=== PATIENT | male | born 1940 | race Caucasian/White ===

== ENCOUNTER 2017-11-22 15:35 | Inpatient (IN) | payer MEDICARE, OTHER ==
[~2017-11-22] VITALS: Ht 180.3 cm; Wt 116.9 kg
[~2017-11-22 15:35] MED LIST: AMLO5 PO; ATOR40TA; ATOR80 PO; CELE200; FINA5 PO; GABA800 PO; GABAPENTIN; GLUCHON; HYDACE5 PO; HYDMOR2 PO; KETO10 PO; LAVAP17G PO; MULVITA; OXYCODONE; PROM25 PO; PROM50S PR; RXHYDMOR2 PO; TAMS.4ER PO; TRAM50 PO; TYLENOL ARTHRITIS; VALS80
[2017-11-22 16:36] LABS: BASOPHILS ABSOLUTE AUTO 0.04 K/mm3 (0.00-0.23); BASOPHILS PERCENT AUTO 1 % (0-2); EOSINOPHILS ABSOLUTE AUTO 0.07 K/mm3 (0.00-0.68); EOSINOPHILS PERCENT AUTO 1 % (0-6); Hematocrit 45.2 % (37.0-53.0); Hemoglobin 15.1 g/dL (13.5-17.5); IMMATURE GRAN ABSOLUTE AUTO 0.01 K/mm3 (0.00-0.10); IMMATURE GRAN PERCENT AUTO 0 % (0-1); LYMPHOCYTES ABSOLUTE AUTO 1.53 K/mm3 (0.84-5.20); LYMPHOCYTES PERCENT AUTO 21 % (21-46); MONOCYTES ABSOLUTE AUTO 0.51 K/mm3 (0.16-1.47); MONOCYTES PERCENT AUTO 7 % (4-13); Mean Corpuscular HGB 29.8 pg (26.0-34.0); Mean Corpuscular HGB Conc 33.4 g/dL (31.5-36.5); Mean Corpuscular Volume 89 fL (80-100); Mean Platelet Volume 10.9 fL (9.1-12.4); NEUTROPHILS PERCENT AUTO 70 % (41-73); Platelet Count 166 K/mm3 (150-400); RDW Coefficient Variation 13.1 % (11.7-14.2); RDW Standard Deviation 42.9 fL (35.1-46.3); Red Blood Cell Count 5.06 M/mm3 (4.30-5.90); White Blood Cell Count 7.16 K/mm3 (4.00-11.30)
[2017-11-22 16:48] LABS: International Normalized Ratio 1.11; Prothrombin Time Results 11.6 Sec (9.7-11.5)
[2017-11-22 16:52] LABS: Alanine Aminotransfer (ALT/SGP 37 U/L (12-78); Albumin, Blood 3.8 g/dL (3.4-5.0); Albumin/Globulin Ratio 1.1 (0.8-1.8); Alk Phos 90 U/L (50-136); Anion Gap 8 mmol/L (6-16); Aspartate Aminotrans (AST/SGOT 24 U/L (12-37); Bilirubin, Total 0.5 mg/dL (0.1-1.0); Blood Urea Nitrogen 17 mg/dL (8-24); Bun/Creatinine Ratio 13.7 (12.0-20.0); CO2, Blood 25 mmol/L (21-32); Calcium, Blood 9.3 mg/dL (8.5-10.1); Chloride, Blood 112 mmol/L (98-108); Creatinine, Blood 1.24 mg/dL (0.60-1.20); Globulin, Blood 3.5 g/dL (2.2-4.0); Glomerular Filtration Rate >60 (60-); Glucose, Blood 120 mg/dL (70-99); Potassium, Blood 3.8 mmol/L (3.5-5.5); Sodium, Blood 145 mmol/L (136-145); Total Protein, Blood 7.3 g/dL (6.4-8.2)
[2017-11-23 05:55] LABS: BASOPHILS ABSOLUTE AUTO 0.04 K/mm3 (0.00-0.23); BASOPHILS PERCENT AUTO 1 % (0-2); EOSINOPHILS ABSOLUTE AUTO 0.09 K/mm3 (0.00-0.68); EOSINOPHILS PERCENT AUTO 2 % (0-6); Hemoglobin 14.4 g/dL (13.5-17.5); IMMATURE GRAN ABSOLUTE AUTO 0.01 K/mm3 (0.00-0.10); IMMATURE GRAN PERCENT AUTO 0 % (0-1); LYMPHOCYTES ABSOLUTE AUTO 1.46 K/mm3 (0.84-5.20); LYMPHOCYTES PERCENT AUTO 32 % (21-46); MONOCYTES ABSOLUTE AUTO 0.35 K/mm3 (0.16-1.47); MONOCYTES PERCENT AUTO 8 % (4-13); Mean Corpuscular HGB 29.9 pg (26.0-34.0); Mean Corpuscular HGB Conc 32.7 g/dL (31.5-36.5); Mean Platelet Volume 10.6 fL (9.1-12.4); NEUTROPHILS ABSOLUTE AUTO 2.58 K/mm3 (1.96-9.15); NEUTROPHILS PERCENT AUTO 57 % (41-73); Platelet Count 108 K/mm3 (150-400); RDW Coefficient Variation 13.1 % (11.7-14.2); RDW Standard Deviation 43.9 fL (35.1-46.3); Red Blood Cell Count 4.81 M/mm3 (4.30-5.90); White Blood Cell Count 4.53 K/mm3 (4.00-11.30)
[2017-11-23 05:59] LABS: Mean Corpuscular Volume 92 fL (80-100)
[2017-11-23 06:23] LABS: Alanine Aminotransfer (ALT/SGP 31 U/L (12-78); Albumin, Blood 3.4 g/dL (3.4-5.0); Alk Phos 72 U/L (50-136); Anion Gap 9 mmol/L (6-16); Aspartate Aminotrans (AST/SGOT 21 U/L (12-37); Bilirubin, Total 0.6 mg/dL (0.1-1.0); Blood Urea Nitrogen 13 mg/dL (8-24); Bun/Creatinine Ratio 12.4 (12.0-20.0); CHOL/HDL RATIO 5.3; CO2, Blood 22 mmol/L (21-32); Calcium, Blood 8.6 mg/dL (8.5-10.1); Chloride, Blood 112 mmol/L (98-108); Cholesterol 165 mg/dL (50-200); Creatinine, Blood 1.05 mg/dL (0.60-1.20); Globulin, Blood 3.4 g/dL (2.2-4.0); Glomerular Filtration Rate >60 (60-); Glucose, Blood 137 mg/dL (70-99); HDL Cholesterol 31 mg/dL (>39); LDL/HDL RATIO 3.2; Low Density Lipoprotein Chol 99 mg/dL (0-110); Potassium, Blood 3.5 mmol/L (3.5-5.5); Sodium, Blood 143 mmol/L (136-145); Total Protein, Blood 6.8 g/dL (6.4-8.2); Triglycerides 176 mg/dL (30-160); Very Low Density Lipoprot Chol 35 mg/dL (6-32)
[2017-11-23] MEDS ORDERED: ASPI325 PO (14:40)
[2017-11-23] MEDS ORDERED: ATOR80 PO (14:40)
== END 2017-11-23 16:52 | disposition home or self-care (01) | DRG 65 ==
LOC: ER 15:35 → MEDS 16:46
PROVIDERS: Emergency Medicine; Family Medicine
DX: I63.9 Cerebral infarction, unspecified (principal); I50.30 Unspecified diastolic (congestive) heart failure; E86.0 Dehydration; I10 Essential (primary) hypertension; E78.5 Hyperlipidemia, unspecified; D69.6 Thrombocytopenia, unspecified; E66.01 Morbid (severe) obesity due to excess calories; I11.0 Hypertensive heart disease with heart failure; Z79.01 Long term (current) use of anticoagulants; Z79.82 Long term (current) use of aspirin; G43.109 Migraine with aura, not intractable, without status migrainosus; F41.8 Other specified anxiety disorders; N40.0 Benign prostatic hyperplasia without lower urinary tract symptoms
CPT/HCPCS: 36415; 70450; 71045; 80053; 80061; 85025; 85610; 85730; 93005; 93010; 93306; 93880; 99285; J1650

== ENCOUNTER 2018-08-10 12:28 | Day surgery (SDC) | payer MEDICARE, OTHER ==
[~2018-08-10] VITALS: Ht 180.3 cm; Wt 124.8 kg
[~2018-08-10 12:28] MED LIST changes: +ASPI325 PO; +BACL10; +BISA5EC; +DICL75ER PO; +ESZO1
== END 2018-08-10 14:17 | disposition home or self-care (01) ==
LOC: ORSCSDS 12:28
PROVIDERS: Anesthesiology
PROC: 3E0R33Z Introduction of Anti-inflammatory into Spinal Canal, Percutaneous Approach (ICD-10-PCS; principal; 2018-08-10 13:45)
DX: M96.1 Postlaminectomy syndrome, not elsewhere classified (principal); M54.17 Radiculopathy, lumbosacral region; E78.00 Pure hypercholesterolemia, unspecified; I10 Essential (primary) hypertension; G47.33 Obstructive sleep apnea (adult) (pediatric); K21.9 Gastro-esophageal reflux disease without esophagitis; Z87.891 Personal history of nicotine dependence; Z68.38 Body mass index [BMI] 38.0-38.9, adult; Z79.899 Other long term (current) drug therapy
CPT/HCPCS: J1040; J1100

== ENCOUNTER 2018-09-05 10:31 | Day surgery (SDC) | payer MEDICARE, OTHER ==
[~2018-09-05] VITALS: Ht 180.3 cm; Wt 123.8 kg
== END 2018-09-05 12:25 | disposition home or self-care (01) ==
LOC: ORSCSDS 10:31
PROVIDERS: Anesthesiology
PROC: 3E0R33Z Introduction of Anti-inflammatory into Spinal Canal, Percutaneous Approach (ICD-10-PCS; principal; 2018-09-05 12:00)
DX: M54.16 Radiculopathy, lumbar region (principal); I10 Essential (primary) hypertension; K21.0 Gastro-esophageal reflux disease with esophagitis; B19.10 Unspecified viral hepatitis B without hepatic coma; G47.30 Sleep apnea, unspecified; Z87.891 Personal history of nicotine dependence; E78.00 Pure hypercholesterolemia, unspecified; Z86.73 Personal history of transient ischemic attack (TIA), and cerebral infarction without residual deficits; E66.01 Morbid (severe) obesity due to excess calories; Z68.38 Body mass index [BMI] 38.0-38.9, adult; Z79.82 Long term (current) use of aspirin; Z79.899 Other long term (current) drug therapy
CPT/HCPCS: J1040; J7120

== ENCOUNTER 2018-11-21 12:40 | Day surgery (SDC) | payer MEDICARE, OTHER ==
[~2018-11-21] VITALS: Ht 180.3 cm; Wt 127.3 kg
== END 2018-11-21 14:07 | disposition home or self-care (01) ==
LOC: ORSCSDS 12:40
PROVIDERS: Anesthesiology
PROC: 3E0R33Z Introduction of Anti-inflammatory into Spinal Canal, Percutaneous Approach (ICD-10-PCS; principal; 2018-11-21 14:15)
DX: M54.16 Radiculopathy, lumbar region (principal); K21.9 Gastro-esophageal reflux disease without esophagitis; E78.00 Pure hypercholesterolemia, unspecified; G47.33 Obstructive sleep apnea (adult) (pediatric); I10 Essential (primary) hypertension; Z87.891 Personal history of nicotine dependence; E66.01 Morbid (severe) obesity due to excess calories; Z68.39 Body mass index [BMI] 39.0-39.9, adult; Z79.82 Long term (current) use of aspirin; Z79.899 Other long term (current) drug therapy
CPT/HCPCS: J1040

== ENCOUNTER 2018-12-15 15:01 | Emergency (ER) | payer MEDICARE, OTHER ==
[~2018-12-15] VITALS: Ht 180.3 cm; Wt 124.3 kg
[~2018-12-15 15:01] MED LIST changes: -BACL10; +BACL10 PO; -BISA5EC; +BISA5EC PO
[2018-12-15 15:38] LABS: BASOPHILS ABSOLUTE AUTO 0.03 K/mm3 (0.00-0.23); BASOPHILS PERCENT AUTO 1 % (0-2); EOSINOPHILS ABSOLUTE AUTO 0.09 K/mm3 (0.00-0.68); EOSINOPHILS PERCENT AUTO 2 % (0-6); Hematocrit 40.2 % (37.0-53.0); IMMATURE GRAN ABSOLUTE AUTO 0.01 K/mm3 (0.00-0.10); IMMATURE GRAN PERCENT AUTO 0 % (0-1); LYMPHOCYTES ABSOLUTE AUTO 1.15 K/mm3 (0.84-5.20); LYMPHOCYTES PERCENT AUTO 27 % (21-46); MONOCYTES ABSOLUTE AUTO 0.37 K/mm3 (0.16-1.47); MONOCYTES PERCENT AUTO 9 % (4-13); Mean Corpuscular HGB 29.9 pg (26.0-34.0); Mean Corpuscular HGB Conc 32.3 g/dL (31.5-36.5); Mean Corpuscular Volume 92 fL (80-100); NEUTROPHILS ABSOLUTE AUTO 2.66 K/mm3 (1.96-9.15); NEUTROPHILS PERCENT AUTO 62 % (41-73); Platelet Count 128 K/mm3 (150-400); RDW Coefficient Variation 12.9 % (11.7-14.2); RDW Standard Deviation 44.5 fL (35.1-46.3); Red Blood Cell Count 4.35 M/mm3 (4.30-5.90); White Blood Cell Count 4.31 K/mm3 (4.00-11.30)
[2018-12-15 16:08] LABS: Albumin, Blood 3.6 g/dL (3.4-5.0); Bilirubin, Total 0.6 mg/dL (0.1-1.0); Bun/Creatinine Ratio 17.2 (12.0-20.0); Calcium, Blood 8.6 mg/dL (8.5-10.1); Creatinine, Blood 1.28 mg/dL (0.60-1.20); Globulin, Blood 3.7 g/dL (2.2-4.0); Total Protein, Blood 7.3 g/dL (6.4-8.2)
[2018-12-15] MEDS ORDERED: CLON.1 PO (16:38)
== END 2018-12-15 17:38 | disposition home or self-care (01) ==
LOC: ER 15:01
PROVIDERS: Physician Assistant
DX: R41.82 Altered mental status, unspecified (principal); J42 Unspecified chronic bronchitis; Z86.73 Personal history of transient ischemic attack (TIA), and cerebral infarction without residual deficits; Z88.5 Allergy status to narcotic agent; Z79.899 Other long term (current) drug therapy; Z79.82 Long term (current) use of aspirin; Z87.442 Personal history of urinary calculi; Z87.891 Personal history of nicotine dependence
CPT/HCPCS: 70450; 71046; 80053; 82947; 85025; 93005; 93010; 99285-25

== ENCOUNTER → 2018-12-20 | Outpatient (CLI) | payer MEDICARE, OTHER ==
[~2018-12-20] MED LIST changes: +CLON.1 PO
== END | disposition home or self-care (01) ==
LOC: LAB SHORT 14:21 → LAB 14:21
DX: R91.8 Other nonspecific abnormal finding of lung field (principal); R05 Cough
CPT/HCPCS: 87070; 87205

== ENCOUNTER 2018-12-25 15:20 | Inpatient (IN) | payer MEDICARE, OTHER ==
[~2018-12-25] VITALS: Ht 180.3 cm; Wt 116.4 kg
[~2018-12-25 15:20] MED LIST changes: -ASPI325 PO; +Aspirin EC81 MG PO
[2018-12-25 16:20] LABS: BASOPHILS ABSOLUTE AUTO 0.04 K/mm3 (0.00-0.23); BASOPHILS PERCENT AUTO 1 % (0-2); EOSINOPHILS ABSOLUTE AUTO 0.11 K/mm3 (0.00-0.68); EOSINOPHILS PERCENT AUTO 2 % (0-6); Hematocrit 40.7 % (37.0-53.0); IMMATURE GRAN ABSOLUTE AUTO 0.01 K/mm3 (0.00-0.10); IMMATURE GRAN PERCENT AUTO 0 % (0-1); LYMPHOCYTES ABSOLUTE AUTO 1.52 K/mm3 (0.84-5.20); LYMPHOCYTES PERCENT AUTO 24 % (21-46); MONOCYTES ABSOLUTE AUTO 0.49 K/mm3 (0.16-1.47); MONOCYTES PERCENT AUTO 8 % (4-13); Mean Corpuscular HGB 29.3 pg (26.0-34.0); Mean Corpuscular HGB Conc 31.9 g/dL (31.5-36.5); Mean Corpuscular Volume 92 fL (80-100); Mean Platelet Volume 11.1 fL (9.1-12.4); NEUTROPHILS ABSOLUTE AUTO 4.09 K/mm3 (1.96-9.15); NEUTROPHILS PERCENT AUTO 65 % (41-73); Platelet Count 151 K/mm3 (150-400); RDW Coefficient Variation 12.5 % (11.7-14.2); RDW Standard Deviation 42.7 fL (35.1-46.3); Red Blood Cell Count 4.43 M/mm3 (4.30-5.90); White Blood Cell Count 6.26 K/mm3 (4.00-11.30)
[2018-12-25 16:30] LABS: International Normalized Ratio 1.1; Prothrombin Time Results 11.6 Sec (9.7-11.5)
[2018-12-25 16:42] LABS: Albumin, Blood 3.9 g/dL (3.4-5.0); Albumin/Globulin Ratio 1.1 (0.8-1.8); Bilirubin, Total 0.7 mg/dL (0.1-1.0); Bun/Creatinine Ratio 16.5 (12.0-20.0); Calcium, Blood 9.2 mg/dL (8.5-10.1); Creatinine, Blood 1.58 mg/dL (0.60-1.20); Globulin, Blood 3.6 g/dL (2.2-4.0); Potassium, Blood 4.1 mmol/L (3.5-5.5); Total Protein, Blood 7.5 g/dL (6.4-8.2)
[2018-12-25] MEDS ORDERED: Percocet 5-3251 EACH PO (18:37)
[2018-12-25] MEDS ORDERED: DIPH50 PO (19:43)
[2018-12-25] MEDS ORDERED: DICL75ER PO (19:44)
[2018-12-25] MEDS ORDERED: CELE200 PO (19:45)
[2018-12-25 22:02] LABS: CPK Creatine Kinase 98 U/L (39-308)
[2018-12-26 00:49] LABS: Source, Urine Clean Catch
[2018-12-26 00:52] LABS: Bilirubin, Urine Neg (Neg); Blood, Urine Neg (Neg); Glucose Qualitative, Urine Neg (Neg); Ketones, Urine Neg (Neg); Leukocyte Esterase, Urine Neg (Neg); Nitrite, Urine Neg (Neg); Protein, Urine Neg (Neg); Urobilinogen, Urine NORM (Normal)
[2018-12-26 00:58] LABS: Appearance, Urine Clear (Clear); Color, Urine Yellow (P-Yellow)
[2018-12-26 04:42] LABS: BASOPHILS ABSOLUTE AUTO 0.04 K/mm3 (0.00-0.23); BASOPHILS PERCENT AUTO 1 % (0-2); EOSINOPHILS ABSOLUTE AUTO 0.13 K/mm3 (0.00-0.68); EOSINOPHILS PERCENT AUTO 2 % (0-6); Hematocrit 39.6 % (37.0-53.0); IMMATURE GRAN ABSOLUTE AUTO 0.03 K/mm3 (0.00-0.10); IMMATURE GRAN PERCENT AUTO 0 % (0-1); LYMPHOCYTES ABSOLUTE AUTO 1.46 K/mm3 (0.84-5.20); LYMPHOCYTES PERCENT AUTO 20 % (21-46); MONOCYTES ABSOLUTE AUTO 0.52 K/mm3 (0.16-1.47); MONOCYTES PERCENT AUTO 7 % (4-13); Mean Corpuscular HGB Conc 32.8 g/dL (31.5-36.5); Mean Corpuscular Volume 91 fL (80-100); Mean Platelet Volume 10.9 fL (9.1-12.4); NEUTROPHILS ABSOLUTE AUTO 5.04 K/mm3 (1.96-9.15); NEUTROPHILS PERCENT AUTO 70 % (41-73); Platelet Count 165 K/mm3 (150-400); RDW Coefficient Variation 12.5 % (11.7-14.2); Red Blood Cell Count 4.34 M/mm3 (4.30-5.90); White Blood Cell Count 7.22 K/mm3 (4.00-11.30)
--- NOTE | 2018-12-26 04:48 | NUR ---
SHIFT SUMMARY: PATIENT ARRIVED TO THE FLOOR AT 2150 VIA GURNEY. ASSISTED TO BED 1-2 PERSON ASSIST. HAD TO USE URINAL RIGHT AWAY. PATIENT VERY SHY AND DID NOT WANT ANYONE IN ROOM, INFORMED THAT WE STILL HAS TO BE DUE TO HIS SYMPTOMS TO PREVENT A FALL. ONCE IN BED, HE HAS RIGHT SIDE WEAKNESS, FACIAL DROOP RIGHT SIDE, LEANING TO THE RIGHT. 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 HE IS HOPING IT IS NOT THAT. LUNG SOUNDS CLEAR THROUGHOUT. 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 CREWMAN MAIN BATTLE TANK WERE ALSO WEAK ON THE RIGHT AND DORSAL FLEXTION AND EXTENTION ALSO WEEK. DENIED ANY OTHER ISSUES, SWALLOWING NOTED WITH IN NORMALL. HE DID BEGIN TO HAVE INCREASE IN HEADACHE WHICH TYLENOL WAS GIVEN, FACIAL DROOP AND WEAKNESS UNCHANGED THROUGHOUT THE NIGHT. WILL REPORT TO DAY SHIFT.
[2018-12-26 04:56] LABS: International Normalized Ratio 1.08; Prothrombin Time Results 11.4 Sec (9.7-11.5)
[2018-12-26 05:07] LABS: Bun/Creatinine Ratio 19.2 (12.0-20.0); Calcium, Blood 9.2 mg/dL (8.5-10.1); Creatinine, Blood 1.3 mg/dL (0.60-1.20); Potassium, Blood 4.3 mmol/L (3.5-5.5)
--- NOTE | 2018-12-26 17:18 | NUR ---
[facility] initial visit: Met with Mr. Green and his at bedside. They report a nhan rissa that brings them comfort and guidence. Both were appreciative of prayer and spiritual encouragement. Family marking clerk is making visits. Mr. Green spoke clearly to me and states he feels stronger than he did last night. He is grateful for this. Both pt and spouse feel loved and supported by adult children and scientologist. Other than prayer, no needs presented. I will remain available.
--- NOTE | 2018-12-26 18:12 | NUR ---
SHIFT SUMMARY PT WORKED WITH PHYSICAL AND OCCUPATIONAL THERAPY THIS SHIFT. PT UP TO CHAIR FOR ALL MEALS. PT WEAK WHEN STANDING. RIGHT SIDE WEAKNESS GREATER THAN LEFT. PT ALERT AND ORIENTED X3 BUT DOES HAVE DIFFICULTY GETTING OUT WHAT HE WANTS TO SAY AT TIMES. NO COMPLAINTS OF PAIN THIS SHIFT. PT HAS A GOOD APPETITE. NO CHANGES THIS SHIFT. CALL LIGHT IN REACH. WILL CONTINUE TO MONITOR AND REPORT TO ONCOMING RN.
--- NOTE | 2018-12-27 07:57 | NUR ---
Rn summary: Patient is confused. He frequently wants to got into the bathroom to void, he is not steady enough. Pt would use urinal with 2 assist and walker to support pt but it was distressing and took explaining and redirecting. Pt was restless until about 0430 when he was able to go to sleep. Pt was found at 0545 sitting on the blue bench in the room. Pt had slipped through the rails. Patient states he just doesn't feel well but can't explain how or why. Pt does ask frequently for his . He also can not remember he is in the hospital. Pt is oriented to self and birthday. Pt is impulsive and difficult to redirect when he decides he wants to get up. Pt interveiwed for MRI paperwork. Pt was medicated x1 with tylenol for headache. Pt headache seemed to increase if he tried to concentrate or was more agitated. call light in reach and bed alarm on.
--- NOTE | 2018-12-27 18:31 | NUR ---
PATIENT WAS NOT AWAKE ENOUGH TO EAT DINNER AT THIS TIME. RN NOTIFIED.
--- NOTE | 2018-12-27 18:44 | NUR ---
SHIFT SUMMARY PT HAS BEEN MORE CONFUSED THIS SHIFT AND HAS PROGRESSIVELY BECOME MORE WEAK AND CONFUSED THE SHIFT WENT ON. PT WAS UPSET A LOT OF THE SHIFT DUE TO HIS BEING IN ED AND HAVING SURGERY TODAY. PT WENT DOWN TO SEE PT THIS AFTERNOON IN WHEELCHAIR BEFORE SURGERY. WHEN PT BACK TO ROOM, PT WAS VERY SLEEPY, CONFUSED, AND WEAK. PT WAS ABLE TO STAND BUT NOT AMBULATE TO BED. SIT TO STAND WAS USED TO GET PT BACK IN BED. PT HAS BEEN SLEEPING SINCE. DR. VILLALBA AWARE OF PT'S CONFUSION/SLEEPINESS AND HEAD CT ORDERED. WAITING FOR RESULTS. WILL CONTINUE TO MONITOR AND REPORT TO ONCOMING RN.
--- NOTE | 2018-12-27 19:42 | NUR ---
TEMP 103.1 ORALLY, TYLENOL 650MG GIVEN IN APPLESAUCE, ICE PACKS X 2 PLACED UNDER BILATERAL ARMS. TELEPHONE CALL MESSAGE LEFT AT [facility]PITAL[id number] PROGRAMMER ANALYST--Amira RICE NP
--- NOTE | 2018-12-27 19:54 | NUR ---
SHEREEN ROWLEY ADVISED OF TEMPERATURE. CONTINUE TO MONITOR.
--- NOTE | 2018-12-27 21:46 | NUR ---
TEMPERATURE 102.9 AND EMESIS X 1 AFTER EVENING MEDS GIVEN VIA APPLESAUCE, Amira RICE NP ADVISED WITH ORDERS FOR ZOFRAN 4MG IVP AND MOTRIN 400MG PO NOW. PT HAS PULLED IV OUT AND REQUIRES NEW IV RESTART AT THIS TIME.
[2018-12-27 23:01] LABS: BASOPHILS ABSOLUTE AUTO 0.03 K/mm3 (0.00-0.23); BASOPHILS PERCENT AUTO 0 % (0-2); EOSINOPHILS ABSOLUTE AUTO 0.04 K/mm3 (0.00-0.68); EOSINOPHILS PERCENT AUTO 0 % (0-6); Hematocrit 41.1 % (37.0-53.0); Hemoglobin 13.3 g/dL (13.5-17.5); IMMATURE GRAN ABSOLUTE AUTO 0.02 K/mm3 (0.00-0.10); IMMATURE GRAN PERCENT AUTO 0 % (0-1); LYMPHOCYTES ABSOLUTE AUTO 1.21 K/mm3 (0.84-5.20); LYMPHOCYTES PERCENT AUTO 13 % (21-46); MONOCYTES ABSOLUTE AUTO 0.59 K/mm3 (0.16-1.47); MONOCYTES PERCENT AUTO 7 % (4-13); Mean Corpuscular HGB 29.7 pg (26.0-34.0); Mean Corpuscular HGB Conc 32.4 g/dL (31.5-36.5); Mean Corpuscular Volume 92 fL (80-100); NEUTROPHILS ABSOLUTE AUTO 7.16 K/mm3 (1.96-9.15); NEUTROPHILS PERCENT AUTO 79 % (41-73); Platelet Count 143 K/mm3 (150-400); RDW Coefficient Variation 12.4 % (11.7-14.2); RDW Standard Deviation 42.2 fL (35.1-46.3); Red Blood Cell Count 4.48 M/mm3 (4.30-5.90); White Blood Cell Count 9.05 K/mm3 (4.00-11.30)
[2018-12-27 23:17] LABS: Anion Gap 9 mmol/L (6-16); Blood Urea Nitrogen 17 mg/dL (8-24); Bun/Creatinine Ratio 15.3 (12.0-20.0); CO2, Blood 22 mmol/L (21-32); Calcium, Blood 9.1 mg/dL (8.5-10.1); Chloride, Blood 108 mmol/L (98-108); Creatinine, Blood 1.11 mg/dL (0.60-1.20); Glomerular Filtration Rate >60 (60-); Glucose, Blood 107 mg/dL (70-99); Potassium, Blood 4.2 mmol/L (3.5-5.5); Sodium, Blood 139 mmol/L (136-145)
[2018-12-28 04:40] LABS: Source, Urine Catheter
[2018-12-28 04:42] LABS: Bilirubin, Urine Neg (Neg); Blood, Urine Neg (Neg); Glucose Qualitative, Urine Neg (Neg); Ketones, Urine Neg (Neg); Leukocyte Esterase, Urine Neg (Neg); Nitrite, Urine Neg (Neg); Protein, Urine 2+ (Neg); Specific Gravity, Urine 1.015 (1.003-1.022); Urobilinogen, Urine NORM (Normal)
[2018-12-28 04:51] LABS: Appearance, Urine Clear (Clear); Color, Urine Yellow (P-Yellow)
[2018-12-28 04:56] LABS: Bacteria Not Seen /hpf; Hyaline Casts 0-2 /lpf (0-2); Red Blood Cells, Urine Not Seen /hpf (0-2); Squamous Epithelial Cells Not Seen /hpf (Few); White Blood Cells, Urine Not Seen /hpf (0-5)
--- NOTE | 2018-12-28 08:32 | NUR ---
PATIENT DID NOT EAT BREAKFAST THIS SHIFT. PATIENT DELCINED HIS TRAY WHEN I BROUGHT IT INTO HIS ROOM AND STATED HE DID NOT WANT TO EAT AND THAT HE DID NOT FEEL LIKE IT. RN WAS NOTIFIED.
--- NOTE | 2018-12-28 14:30 | NUR ---
Initial Visit: Palliative Care Consult for AD/POLST. Received call from home care scheduler Meg and she reports Pt and Pt's is interested in completing a POLST. Meg recommends waiting for approximately 1 hours due to lots of family visiting. Arrived to Pt's room. Pt is resting in bed and appears comfortable. He expresses interest in completing an AD/POLST but would like to wait until his is present. Intructed Pt to have bedside nurse contact palliative care when ready to complete a POLST. No other concerns reported at this time.
--- NOTE | 2018-12-28 15:18 | NUR ---
PATIENT DID NOT EAT LUNCH THIS SHIFT. PATIENT DECLINED HIS LUNCH TRAY WHEN I BROUGHT IT IN. STATED HE WAS NOT HUNGRY. TRAY WAS REMOVED AFTER SOME CONVERSATION ABOUT TRYING TO EAT. RN WAS NOTIFIED.
--- NOTE | 2018-12-28 16:42 | NUR ---
SHIFT SUMMARY- PT AXO X3. PT DENIES PAIN. DENIES N/V. DENIES SOB. RESP E/U ON RA. NSR WITH 1ST DEG BLOCK AT [address] Jg HANNA IN TODAY AND SPOKE WITH PT'S FAMILY. PALLIATIVE CARE NURSE IN TODAY TO DISCUSS POLST WITH PT AND FAMILY. 1 ASSIST WITH GB AND FWW TO CHAIR/BSC. INCONTINENT AT TIMES. ATTENDS IN PLACE. NO OTHER SIGNIFICANT CHANGES THIS SHIFT.
--- NOTE | 2018-12-29 05:16 | NUR ---
NOC SHIFT SUMMARY PT IS PLEASANT AND COOPERATIVE WITH CARE THIS NIGHT. AAOX4 SPEACH IS APPROPRIATE THOUGH HE IS SLOW TO RESPOND. CONTINENT THIS NIGHT. VSS. TELE SHOWS SINUS RYTHIM IN THE 80'S WITH 1ST DEGREE BLOCK. PT HAS COMPLAINED OF HEADACHE WHICH HE STATES HE ALWAYS HAS IN THE MORNING. TREATED WITH TYLENOL. PT CURRENTLY APPEARS TO BE SLEEPING AND IN NO ACUTE DISTRESS. WILL CONTINUE TO MONITOR.
[2018-12-29 05:19] LABS: BASOPHILS ABSOLUTE AUTO 0.04 K/mm3 (0.00-0.23); BASOPHILS PERCENT AUTO 1 % (0-2); EOSINOPHILS ABSOLUTE AUTO 0.13 K/mm3 (0.00-0.68); EOSINOPHILS PERCENT AUTO 2 % (0-6); Hematocrit 39.1 % (37.0-53.0); Hemoglobin 12.8 g/dL (13.5-17.5); IMMATURE GRAN ABSOLUTE AUTO 0.01 K/mm3 (0.00-0.10); IMMATURE GRAN PERCENT AUTO 0 % (0-1); LYMPHOCYTES ABSOLUTE AUTO 1.16 K/mm3 (0.84-5.20); LYMPHOCYTES PERCENT AUTO 18 % (21-46); MONOCYTES ABSOLUTE AUTO 0.54 K/mm3 (0.16-1.47); MONOCYTES PERCENT AUTO 8 % (4-13); Mean Corpuscular HGB 29.8 pg (26.0-34.0); Mean Corpuscular HGB Conc 32.7 g/dL (31.5-36.5); Mean Corpuscular Volume 91 fL (80-100); Mean Platelet Volume 10.5 fL (9.1-12.4); NEUTROPHILS ABSOLUTE AUTO 4.75 K/mm3 (1.96-9.15); NEUTROPHILS PERCENT AUTO 72 % (41-73); Platelet Count 129 K/mm3 (150-400); RDW Coefficient Variation 12.6 % (11.7-14.2); RDW Standard Deviation 41.9 fL (35.1-46.3); White Blood Cell Count 6.63 K/mm3 (4.00-11.30)
[2018-12-29 05:51] LABS: Albumin, Blood 3.4 g/dL (3.4-5.0); Albumin/Globulin Ratio 0.9 (0.8-1.8); Bilirubin, Total 0.9 mg/dL (0.1-1.0); Bun/Creatinine Ratio 14.3 (12.0-20.0); Calcium, Blood 9.1 mg/dL (8.5-10.1); Creatinine, Blood 1.26 mg/dL (0.60-1.20); Globulin, Blood 3.7 g/dL (2.2-4.0); Potassium, Blood 3.7 mmol/L (3.5-5.5); Total Protein, Blood 7.1 g/dL (6.4-8.2)
--- NOTE | 2018-12-29 17:38 | NUR ---
SHIFT SUMMARY- PT AXO X3. FORGETFUL. BED ALARM ON. CALL LIGHT IN REACH. PT C/O HEADACHE THIS AM. MEDS GIVEN PER EMAR. DENIES N/V. PT REPORTS LACK OF APPETITE SINCE ADMIT. DENIES SOB. RESP E/U ON RA. NSR WITH 1ST DEG BLOCK AT 63 PER PCU BULLARD OPERATOR. FAMILY AND FRIENDS IN TO VISIT PT TODAY. 1 ASSIST WITH GB AND FWW TO THE BATHROOM. NOTIFIED HOWARD NANOTECHNOLOGIST THAT DR. TATUM PUT IN A "NURSE NOTIFY" FOR THE PT TO HAVE A POWERGLIDE PLACED. THERE IS NOT ANY RN'S HERE TODAY THAT CAN PLACE ONE. ATTEMPTED TO CALL [facility] TO SEE IF ANYONE AVAILABLE FOR POWERGLIDE PLACEMENT. NO ONE ANSWERED. NO OTHER SIGNIFICANT CHANGES THIS SHIFT.
--- NOTE | 2018-12-30 04:17 | NUR ---
NOC SHIFT SUMMARY PT IS PLEASANT AND COOPERATIVE WITH CARE. AAOX3. RESP ARE EVEN AND UNLABORED. CONTINIOUS PULSE OX IN PLACE. WHEN HE FALLS TO SLEEP HIS PULSE DOES FALL INTO THE HIGH 40'S BRIEFLY AT TIMES. LYING FLAT SATS FALL INTO TONYA 80'S. PULLED UP IN BED AND SET HOB UP AND THIS IMPROVED. PER TANK BUILDER SUPERVISOR CURRENTLY SINUS SHRUTHI IN THE 50'S WITH 1ST DEGREE BLOCK. OTHER THAN WHAT IS NOTED ABOVE NO ACUTE CHANGES NOTED THIS NIGHT. PT APPEARS IN NO ACUTE DISTRESS. WAKES EASILY TO VOICE. WILL CONTINUE TO MONITOR.
[2018-12-30 06:51] LABS: BASOPHILS ABSOLUTE AUTO 0.03 K/mm3 (0.00-0.23); BASOPHILS PERCENT AUTO 1 % (0-2); EOSINOPHILS ABSOLUTE AUTO 0.17 K/mm3 (0.00-0.68); EOSINOPHILS PERCENT AUTO 3 % (0-6); Hemoglobin 12.8 g/dL (13.5-17.5); IMMATURE GRAN ABSOLUTE AUTO 0.01 K/mm3 (0.00-0.10); IMMATURE GRAN PERCENT AUTO 0 % (0-1); LYMPHOCYTES ABSOLUTE AUTO 1.31 K/mm3 (0.84-5.20); LYMPHOCYTES PERCENT AUTO 24 % (21-46); MONOCYTES ABSOLUTE AUTO 0.45 K/mm3 (0.16-1.47); MONOCYTES PERCENT AUTO 8 % (4-13); Mean Corpuscular HGB 29.1 pg (26.0-34.0); Mean Corpuscular HGB Conc 32.8 g/dL (31.5-36.5); Mean Corpuscular Volume 89 fL (80-100); Mean Platelet Volume 10.5 fL (9.1-12.4); NEUTROPHILS ABSOLUTE AUTO 3.45 K/mm3 (1.96-9.15); NEUTROPHILS PERCENT AUTO 64 % (41-73); Platelet Count 132 K/mm3 (150-400); RDW Coefficient Variation 12.5 % (11.7-14.2); White Blood Cell Count 5.42 K/mm3 (4.00-11.30)
[2018-12-30 07:06] LABS: Alanine Aminotransfer (ALT/SGP 31 U/L (12-78); Albumin, Blood 3.4 g/dL (3.4-5.0); Albumin/Globulin Ratio 0.9 (0.8-1.8); Alk Phos 89 U/L (50-136); Anion Gap 7 mmol/L (6-16); Aspartate Aminotrans (AST/SGOT 26 U/L (12-37); Bilirubin, Total 0.7 mg/dL (0.1-1.0); Blood Urea Nitrogen 17 mg/dL (8-24); Bun/Creatinine Ratio 14.4 (12.0-20.0); CO2, Blood 25 mmol/L (21-32); Calcium, Blood 8.8 mg/dL (8.5-10.1); Chloride, Blood 113 mmol/L (98-108); Creatinine, Blood 1.18 mg/dL (0.60-1.20); Globulin, Blood 3.7 g/dL (2.2-4.0); Glomerular Filtration Rate >60 (60-); Glucose, Blood 84 mg/dL (70-99); Potassium, Blood 3.6 mmol/L (3.5-5.5); Sodium, Blood 145 mmol/L (136-145); Total Protein, Blood 7.1 g/dL (6.4-8.2)
--- NOTE | 2018-12-30 17:26 | NUR ---
SHIFT SUMMARY- PT AXO X3. FORGETFUL. BED ALARM ON. CALL LIGHT IN REACH. PT C/O HEADACHE THIS AFTERNOON. MEDS GIVEN PER EMAR. DENIES SOB. RESP E/U ON RA. DENIES N/V. 1 ASSIST WITH FWW AND GB TO THE BATHROOM. NO OTHER SIGNIFICANT CHANGES THIS SHIFT.
--- NOTE | 2018-12-31 05:31 | NUR ---
CARTRIDGE LOADER SUMMARY PT. IS A&OX3. FORGETFUL IS COOPERATIVE WITH CARE. PT. HAS RT SIDED WEAKNESS. AMBULATES WITH WALKER TO THE BATHROOM WITH 1 ASSIST. PT. DENIES ANY PAIN OR DISCOMFORT. RESTING COMFORTABLY IN BED, NO APPARENT DISTRESS NOTED. CALL LIGHT WITHIN REACH, SIDE RAILS UP X3, AND BED ALARM ON. WILL CONT TO MONITOR.
[2018-12-31] MEDS ORDERED: CLON.1 PO (14:18)
[2018-12-31] MEDS ORDERED: ACET325 PO (14:19)
[2018-12-31] MEDS ORDERED: ANALGESIC BALM TOP (14:20)
[2018-12-31] MEDS ORDERED: CLOP75 PO (14:21)
[2018-12-31] MEDS ORDERED: Florastor250 MG PO (14:21)
[2018-12-31] MEDS ORDERED: Zosyn 4.54.5 GM/100 (14:22)
--- NOTE | 2018-12-31 14:45 | NUR ---
REPORT GIVEN TO ANDRES AT [facility]. ANSWER ALL QUESTIONS. AWAITING RIDE.
--- NOTE | 2018-12-31 15:13 | NUR ---
PATIENT IN W/C GOING [facility].
== END 2018-12-31 15:09 | DRG 64 ==
LOC: ER 15:20 → MEDS 20:25 → ENPENDDIS 12-31 14:00 → MEDS 12-31 15:09
PROVIDERS: Family Medicine; Hospitalist; Internal Medicine; Nurse Practitioner Acute Care; Physician Assistant; ADMIT Internal Medicine
DX: I63.9 Cerebral infarction, unspecified (principal); J18.9 Pneumonia, unspecified organism; J98.11 Atelectasis; G81.91 Hemiplegia, unspecified affecting right dominant side; N17.9 Acute kidney failure, unspecified; R27.0 Ataxia, unspecified; R50.9 Fever, unspecified; E78.5 Hyperlipidemia, unspecified; Z86.73 Personal history of transient ischemic attack (TIA), and cerebral infarction without residual deficits; G47.33 Obstructive sleep apnea (adult) (pediatric); J40 Bronchitis, not specified as acute or chronic; E66.9 Obesity, unspecified; R25.1 Tremor, unspecified; N40.0 Benign prostatic hyperplasia without lower urinary tract symptoms; M47.9 Spondylosis, unspecified; M48.061 Spinal stenosis, lumbar region without neurogenic claudication; F41.1 Generalized anxiety disorder; I12.9 Hypertensive chronic kidney disease with stage 1 through stage 4 chronic kidney disease, or unspecified chronic kidney disease; N18.9 Chronic kidney disease, unspecified; R29.703 NIHSS score 3; Z79.82 Long term (current) use of aspirin; Z79.899 Other long term (current) drug therapy; Z87.891 Personal history of nicotine dependence
CPT/HCPCS: 36415; 70450; 70496; 70498; 71045; 72141; 80048; 80053; 81001; 81003; 82550; 82607; 82947; 83605; 84484; 85025; 85610; 87040; 92523; 93005; 93010; 93017; 94762; 97110; 97116; 97162; 97166; 97530; 97535; 99285-25; A9270; J1650; J2543; J2785; J7030; Q0163; Q9967

== ENCOUNTER → 2022-08-15 | Outpatient (CLI) | payer MEDICARE ==
[~2022-08-15] MED LIST changes: +ACET325 PO; +ANALGESIC BALM TOP; +CELE200 PO; +CLOP75 PO; +DIPH50 PO; +Florastor250 MG PO; +Percocet 5-3251 EACH PO; +Zosyn 4.54.5 GM/100
== END | disposition home or self-care (01) ==
LOC: LAB 11:15 → PLD 11:15 → LAB SHORT 11:15
DX: D48.5 Neoplasm of uncertain behavior of skin (principal)
CPT/HCPCS: 88305

== ENCOUNTER → 2022-12-08 | Outpatient (CLI) | payer MEDICARE, OTHER | LOC: LAB SHORT 11:40 → LAB 11:40 | DX: D48.5 Neoplasm of uncertain behavior of skin (principal) | CPT/HCPCS: 88305 ==

== ENCOUNTER → 2023-06-12 | Outpatient (CLI) | payer MEDICARE, OTHER | LOC: LAB 10:33 → LAB SHORT 10:33 | DX: L82.1 Other seborrheic keratosis (principal) | CPT/HCPCS: 88305 ==

== ENCOUNTER → 2023-06-21 | Outpatient (CLI) | payer MEDICARE, OTHER ==
[2023-06-21 16:30] LABS: Creatinine Urine 88.2 mg/dL (27.00-270.00); Microalbumin, Urine Quant. 5.96 mg/L (0.000-20.000); Protein, Urine Quantitative 8.3 mg/dL (0.0-11.9)
== END ==
LOC: LAB SHORT 06:45 → LAB 06:45
PROVIDERS: Internal Medicine Nephrology
DX: N18.30 Chronic kidney disease, stage 3 unspecified (principal); D63.1 Anemia in chronic kidney disease; N25.81 Secondary hyperparathyroidism of renal origin; E55.9 Vitamin D deficiency, unspecified; E78.00 Pure hypercholesterolemia, unspecified; R76.9 Abnormal immunological finding in serum, unspecified; R94.5 Abnormal results of liver function studies; R94.6 Abnormal results of thyroid function studies; D51.8 Other vitamin B12 deficiency anemias; D52.8 Other folate deficiency anemias; D50.9 Iron deficiency anemia, unspecified
CPT/HCPCS: 82043; 82570; 84156